=== PATIENT | male | born 1960 | race African-American/Black ===

== ENCOUNTER 2020-08-20 11:34 | Day surgery (SDC) | payer MEDICAID ==
[2020-08-19 12:37] LABS: COVID AG,FIA SOURCE NASOPHARYNGEAL
[~2020-08-20] VITALS: Ht 175.3 cm; Wt 97.3 kg
[~2020-08-20 11:34] MED LIST: ALBU8.5H8 IH; AMLO10TA55 PO; ASPI-1111 PO; ATOR20TA65 PO; BECL10.6 PO; LOSA50TA37 PO; SILD25 PO; SODIUM CHLORIDE 0.9% 1,000 ML IV ONE; SODIUM CHLORIDE 0.9% 1,000 ML ONE
== END 2020-08-20 15:05 | disposition home or self-care (01) ==
LOC: SURGERY 11:34
PROVIDERS: ATTEND Internal Medicine Gastroenterology
DX: D12.7 Benign neoplasm of rectosigmoid junction (principal); K64.8 Other hemorrhoids; K29.50 Unspecified chronic gastritis without bleeding; I10 Essential (primary) hypertension; E78.00 Pure hypercholesterolemia, unspecified; Z72.89 Other problems related to lifestyle; Z98.890 Other specified postprocedural states
CPT/HCPCS: 43239; 45385; 87426; 88305; 88312; 88313; 93005; C1769; C9803; J7030